=== PATIENT | female | born 1965 | race Caucasian/White ===

== ENCOUNTER → 2017-05-22 | Outpatient (CLI) | payer OTHER ==
[~2017-05-22] VITALS: Ht 154.9 cm; Wt 54.0 kg
[~2017-05-22] MED LIST: ALBUTEROL SULF8.5 GM IH; AMITIZA24 MICROGR PO; ASTELIN137 MCG/0.; BONIVA150 MG PO; CALCIUM +D & M1 EACH PO; CALCIUM500 M4 PO; CYANOCOBAL1000 MCG/2 IM; DILANTIN BRAND100 MG PO; FOLIC ACID1 MG; GABAPENTIN300 MG PO; GABAPENTIN600 MG PO; KADIAN20 MG PO; KEPPRA XR500 MG PO; LORCET 5-325 M1 EACH PO; MIRALAX17 GM PO; MORPHINE SULFAT15 M1 PO; NEURONTIN100 MG PO; NEURONTIN300 MG PO; NITROFURANTOIN50 MG PO; OMEPRAZOLE40 M1; OMEPRAZOLE40 M1 PO; RECLAST5 MG/100 M IV; SIMVASTATIN10 MG; SIMVASTATIN20 MG PO; VITAMIN D250000 UNIT PO; ZANTAC; ZOFRAN ODT4 MG PO; ZYRTEC10 M2 PO
[2017-05-22 11:10] VITALS: BP 103/71
== END | disposition home or self-care (01) ==
LOC: IVINF 10:59
DX: M81.0 Age-related osteoporosis without current pathological fracture (principal)
CPT/HCPCS: 96365; J3489